=== PATIENT | male | born 1950 | race Caucasian/White ===

== ENCOUNTER 2024-11-25 16:09 | Inpatient (IN) | payer OTHER ==
[2024-11-25 17:00] VITALS: BMI 29.0
[2024-11-25] MEDS ORDERED: POLYETHYLENE GLYCOL (HEALTHYLAX) 3350 17 GM PACKET PO PRN (17:45)
[2024-11-25] MEDS ORDERED: IBUPROFEN 400 MG TABLET (FP) PO PRN (17:45)
[2024-11-25] MEDS ORDERED: NALOXONE (NARCAN) HCL 4 MG/0.1 ML SPRAY NS PRN (17:45)
[2024-11-25] MEDS ORDERED: BENZONATATE 200 MG CAPSULE PO PRN (17:45)
[2024-11-25] MEDS ORDERED: LOPERAMIDE HCL 2 MG CAPSULE PO PRN (17:45)
[2024-11-25] MEDS ORDERED: BISMUTH SUBSALICYLATE 524 MG/30 ML PO PRN (17:45)
[2024-11-25] MEDS ORDERED: MAGNESIUM HYDROX 2400MG/30ML ORAL SUSPENSION 30 ML CUP PO PRN (17:45)
[2024-11-25] MEDS ORDERED: ONDANSETRON *ODT* 4 MG TABLET SL PRN (17:45)
[2024-11-25] MEDS ORDERED: IBUPROFEN 600 MG TABLET (FP) PO PRN (17:45)
[2024-11-25] MEDS ORDERED: BENZOCAINE/MENTHOL (CHLORASEPTIC ) LOZENGE MM PRN (17:45)
[2024-11-25] MEDS ORDERED: guaiFENesin 600 MG TABLET.ER (FP) PO PRN (17:45)
[2024-11-25] MEDS ORDERED: ACETAMINOPHEN 325 MG TABLET (FP) PO PRN (17:45)
[2024-11-25] MEDS ORDERED: DICYCLOMINE HCL 10 MG CAPSULE PO PRN (17:45)
[2024-11-25] MEDS ORDERED: MAG HYDROX/AL HYDROX/SIMETH 30 ML UNIT-DOSE CUP PO PRN (17:45)
[2024-11-25] MEDS: NALTREXONE HCL 50 MG TABLET PO ONE (19:04)
[2024-11-25] MEDS: levETIRAcetam 500 MG TABLET (FP) PO SCH (21:45)
[2024-11-25] MEDS: hydrOXYzine PAMOATE 25 MG CAPSULE (FP) PO PRN (21:45)
[2024-11-25] MEDS: MELATONIN 5 MG TABLETS PO SCH (21:45)
[2024-11-25] MEDS: THIAMINE 100 MG TABLET PO SCH (21:46)
[2024-11-26] MEDS: PRENATAL VITAMINS W/ FOLIC ACID TABLET (FP) PO SCH (09:50)
[2024-11-26] MEDS: NALTREXONE HCL 50 MG TABLET PO SCH (09:51)
[2024-11-26 11:27] LABS: MCHC 32.2 g/dl (32.3-36.5); MEAN CELL VOLUME 90.5 fl (79.0-92.2); MEAN PLT VOLUME 9.6 fl (9.4-12.4); RDW 15.5 % (12.2-16.6)
[2024-11-26] MEDS: PATIENT'S OWN MEDICATION (NON-FORMULARY) (Valsartan/Hydrochlorothiazide 1 TAB Tablet) PO SCH (11:32)
[2024-11-26] MEDS: HYDROCHLOROTHIAZIDE 12.5 MG CAPSULE (FP) PO SCH (11:49)
[2024-11-26] MEDS: VALSARTAN 80 MG TABLET PO SCH (11:49)
[2024-11-26 12:23] LABS: GLUCOSE,RANDOM 90 mg/dL (74-106)
[2024-11-26 12:24] LABS: TOT PROT 7.3 g/dl (6.4-8.2)
[2024-11-26 12:25] LABS: CO2 26 mmol/L (21-32)
[2024-11-26 12:26] LABS: ALK PHOS 106 U/L (40-150)
[2024-11-26 12:29] LABS: CREATININE 0.70 mg/dL (0.55-1.3); SGOT/AST 26 U/L (5-34); SGPT/ALT 18 U/L (0-55)
[2024-11-26] MEDS: METHOCARBAMOL 500 MG TABLET PO PRN (17:54)
[2024-11-27] MEDS: FERROUS SO4 325 MG TABLET (FP) PO SCH (22:10)
[2024-11-30] MEDS: NALTREXONE HCL 50 MG TABLET PO SCH (14:33)
[2024-12-01 08:47] VITALS: BP 103/70; PULSE 96; RESP 17; TEMP 97.4
== END 2024-12-01 10:23 | disposition home or self-care (01) | DRG 897 ==
LOC: YASAS 16:09 → Y3N 18:09
PROVIDERS: ADMIT Family Medicine; ATTEND Student in an Organized Health Care Education/Training Program
PROC: HZ2ZZZZ Detoxification Services for Substance Abuse Treatment (ICD-10-PCS; principal; 2024-11-25)
DX: F10.230 Alcohol dependence with withdrawal, uncomplicated (principal); F32.A Depression, unspecified; D50.9 Iron deficiency anemia, unspecified; I10 Essential (primary) hypertension
CPT/HCPCS: 36415; 71046-TC-FY; 80053; 80307; 85027; 86780; 93005; 93010